=== PATIENT | male | born 1980 | race Caucasian/White ===

== ENCOUNTER 2017-11-02 08:07 | Emergency (ER) ==
[2017-11-02 08:14] VITALS: BP 146/76; TEMP 97; BMI 24.5
[2017-11-02] MEDS ORDERED: TYLENOL PO STA (08:40)
--- NOTE | 2017-11-02 08:40 | ED.PDOC ---
General ED Provider: Dr. JANAK MONTERO Chief Complaint: Sore Throat Stated Complaint: Patient states that he has a sorethraot and mild swelling of left hand and toes. Admits to drinking moonshine prior to arrival. Has no PCP. Time Seen by Physician: 08:38 Mode of Arrival: Walk-In Information Source: Patient Exam Limitations: No limitations Nursing and Triage Documentation Reviewed and Agree: Yes Reviewed sepsis parameters & appropriate labs ordered?: Yes System Inflammatory Response Syndrome: Not Applicable Sepsis Protocol: For patient's 13 years and over: Temp is 96.8 and below OR 101 and greater Pulse >90 BPM Resp >20/minute Acutely Altered Mental Status Are patient's symptoms suggestive of a new infection, such as: -Pneumonia -Skin, Soft Tissue -Endocarditis -UTI -Bone, Joint Infection -Implantable Device -Acute Abdominal Infection -Wound Infection -Meningitis -Blood Stream Catheter Infection -Unknown System Inflammatory Response Syndrome: Not Applicable EENT Complaint Exam - Throat Complaint/Exam Onset/Duration: 1 day Symptoms Are: Still present Timimg: Constant Initial Severity: Moderate Current Severity: Moderate Alleviating: Reports: None Associated Signs and Symptoms: Reports: Dysphagia, Hoarseness. Denies: Fever, Drooling, Foreign body sensation, Chills, Cough, Wheezing, Sinus discomfort, Nasal congestion, Difficulty breathing, Lethargy, Irritability, Decreased activity, Vomiting, Diarrhea, Decreased hearing, Ear drainage Uvula Midline: No Jane-tonsillar Fluctuence: No Scarlatinaform Rash Present: No Lesions: Absent: Lip, Gums, Tongue, Buccal Mucosa, Pharynx Exanthem: Absent: Lip, Gums, Tongue, Buccal Mucosa, Pharynx Vesicles: Absent: Lip, Gums, Tongue, Buccal Mucosa, Pharynx Stridor Present: No Sinus Tenderness Present: No Tonsillar Hypertrophy Present: No Tonsillar Exudate Present: No Jane-tonsillar Swelling Present: No Adenopathy Present: No Splenomegaly Present: No Differential Diagnoses: Laryngitis, Tonsillitis Review of Systems - Review Of Systems Constitutional: Reports: No symptoms Eyes: Reports: No symptoms Ears, Nose, Mouth, Throat: Reports: Throat pain Respiratory: Reports: No symptoms Cardiac: Reports: No symptoms GI: Reports: No symptoms : Reports: No symptoms Musculoskeletal: Reports: Joint swelling Skin: Reports: No symptoms Neurological: Reports: No symptoms Endocrine: Reports: No symptoms Hematologic/Lymphatic: Reports: No symptoms All Other Systems: Reviewed and Negative Past Medical History - Past Medical History Previously Healthy: Yes Endocrine: Reports: None Cardiovascular: Reports: None Respiratory: Reports: None Hematological: Reports: None Gastrointestinal: Reports: None Genitourinary: Reports: None Neuro/Psych: Reports: None Musculoskeletal: Reports: None Cancer: Reports: None - Surgical History General Surgical History: Reports: Other (left ankle surgery) - Family History Family History: Reports: None - Social History Smoking Status: Current every day smoker Hx Substance Use: No Alcohol Screening: Occasionally Physical Exam - Physical Exam Appearance: Ill-appearing Ill-appearing: Mild Pain Distress: Moderate Eyes: JADEN, EOMI, Conjunctiva clear ENT: Nose normal, Erythema Neck: Supple Respiratory: Airway patent, Breath sounds clear, Breath sounds equal, Respirations nonlabored Cardiovascular: RRR, Pulses normal, No rub, No murmur Musculoskeletal: Normal strength, ROM intact, No calf tenderness, Edema ( minimal edema on the left hand. FUll range of motion. ) Neurological: Sensation intact, Motor intact, Alert, Oriented Psychiatric: Anxious Critical Care Note - Critical Care Note Total Time (mins): 0 Course - Course Orders, Labs, Meds: Orders Category Date Time Status RAPID STREP SCREEN [MOLECULAR GROUP A STREP] Stat LAB 11/02/17 08:32 Uncollected Vital Signs: Temp Pulse Resp BP Pulse Ox 11/02/17 08:09 97.0 F L 96 H 20 146/76 H 98 Departure - Departure Time of Disposition: 08:59 Disposition: HOME SELF-CARE Discharge Problem: Streptococcal sore throat Instructions: Strep Throat (ED) Condition: Fair Pt referred to PMD for follow-up: Yes Additional Instructions: Follow up with the clinic to establish care Take antibiotics until gone. Take Motrin or Tylenol as needed for pain Prescriptions: Amoxicillin [Amoxil] 500 mg PO TID #30 capsule Ibuprofen [Motrin] 600 mg PO Q6H PRN #20 tablet PRN Reason: Analgesia Allergies/Adverse Reactions: Allergies No Known Allergies Allergy (Unverified 11/02/17 08:14) Home Medications: Ambulatory Orders Amoxicillin [Amoxil] 500 mg PO TID #30 capsule 11/02/17 Ibuprofen [Motrin] 600 mg PO Q6H PRN #20 tablet 11/02/17 Disposition Discussed With: Patient
== END 2017-11-02 09:00 | disposition home or self-care (01) ==
LOC: ED 08:07
DX: J02.0 Streptococcal pharyngitis (principal); F17.210 Nicotine dependence, cigarettes, uncomplicated
CPT/HCPCS: 87651; 99283